=== PATIENT | male | born 1940 | race Caucasian/White ===

== ENCOUNTER → 2018-06-26 09:15 | Outpatient (CLI) | payer OTHER, SELFPAY ==
[2018-06-26 10:27] LABS: Add Manual Diff / Slide Review NO; Basophils Absolute Auto 0 /uL (0-100); Basophils Percent Auto 0.4 % (0-2); Eosinophils Absolute Auto 300 /uL (0-450); Eosinophils Percent Auto 3.9 % (2-4); Hematocrit 44.4 % (41-53); Hemoglobin 14.6 g/dL (13.5-17.5); Lymphocytes Absolute Auto 2300 /uL (1100-4500); Lymphocytes Percent Auto 28.9 % (25-40); Mean Corpuscular HGB Conc 32.9 % (30-36); Mean Corpuscular Hemoglobin 27.3 PG (26-34); Mean Corpuscular Volume 83.1 fL (80-100); Monocytes Absolute Auto 800 /uL (0-900); Monocytes Percent Auto 9.5 % (3-14); Neutrophils Absolute Auto 4600 /uL (1500-7000); Neutrophils Percent Auto 57.3 % (50-75); Platelet Count 321 X10^3/uL (150-400); Red Blood Cell Count 5.34 X10^6/uL (4.5-5.9); Red Cell Distribution Width 14.9 % (11.6-14.8)
[2018-06-26 10:45] LABS: Alanine Aminotransferase 41 IU/L (21-72); Albumin 4.4 g/dL (3.5-5.0); Albumin Globulin Ratio 1.3 (1.0-2.8); Alkaline Phosphatase 66 U/L (38-126); Aspartate Aminotransferase 26 IU/L (17-59); BUN Creatinine Ratio 13.8 (6-22); Bilirubin Total 0.5 mg/dL (0.2-1.3); Blood Urea Nitrogen 18 mg/dL (9-20); Calcium 8.9 mg/dL (8.4-10.2); Carbon Dioxide 26 mmol/L (22-32); Chloride 105 mmol/L (98-107); Cholesterol 207 mg/dL (140-199); Estimated Glomerular Filt Rate 53.3 mL/min (>60); Globulin 3.4 g/dL (1.7-4.1); Glucose 123 mg/dL (80-110); HDL Cholesterol 39 mg/dL (40-60); HEMOLYSIS < 15 (0-50); LDL Cholesterol Calculated 128 mg/dL (<100); Potassium 4.3 mmol/L (3.4-5.1); Sodium 140 mmol/L (137-145); Total Protein 7.8 g/dL (6.3-8.2); Triglycerides 200 mg/dL (35-150)
[2018-06-26 11:13] LABS: Thyroid Stimulating Hormone 0.75 uIU/mL (0.47-4.68)
[2018-06-26 11:33] LABS: Appearance Urine UA SL CLOUDY; Bilirubin Urine UA NEGATIVE (NEGATIVE); Color Urine UA YELLOW; Glucose Urine UA NEGATIVE (Negative); Ketones Urine UA NEGATIVE (NEGATIVE); Leukocyte Esterase Urine UA 3+ (NEGATIVE); Nitrite Urine UA POSITIVE (Negative); Occult Blood Urine UA 1+ (Negative); Protein Urine UA NEGATIVE (Negative); Specific Gravity Urine UA 1.015 (1.000-1.035); Urobilinogen Urine UA 0.2 E.U./dL (0.2); pH Urine UA 5.5 (4.5-8.0)
[2018-06-26 13:33] LABS: Bacteria Urine Many (>30); Culture Indicated Urine Specimen Cultured; RBC Urine 1-5/HPF (0-5/HPF); WBC Urine >100/HPF (0-5/HPF)
== END ==
PROVIDERS: Visit Provider Family Medicine
DX: I10 Essential (primary) hypertension (principal); N40.0 Benign prostatic hyperplasia without lower urinary tract symptoms; Z51.81 Encounter for therapeutic drug level monitoring
CPT/HCPCS: 36415; 80053; 80061; 81003; 81015; 84443; 85025; 87077; 87086; 87186

== ENCOUNTER → 2018-11-14 08:46 | Outpatient (CLI) | payer OTHER, SELFPAY ==
[2018-11-14 09:21] LABS: Hemoglobin A1C% w Est Avg Glu 6.2 % (4.0-6.0)
[2018-11-14 09:32] LABS: Alanine Aminotransferase 29 IU/L (21-72); Albumin 4.1 g/dL (3.5-5.0); Albumin Globulin Ratio 1.3 (1.0-2.8); Alkaline Phosphatase 66 U/L (38-126); Aspartate Aminotransferase 23 IU/L (17-59); BUN Creatinine Ratio 12.5 (6-22); Bilirubin Total 0.4 mg/dL (0.2-1.3); Blood Urea Nitrogen 15 mg/dL (9-20); Calcium 8.7 mg/dL (8.4-10.2); Carbon Dioxide 27 mmol/L (22-32); Chloride 108 mmol/L (98-107); Cholesterol 188 mg/dL (140-199); Estimated Glomerular Filt Rate 58.3 mL/min (>60); Globulin 3.2 g/dL (1.7-4.1); Glucose 114 mg/dL (80-110); HDL Cholesterol 45 mg/dL (40-60); HEMOLYSIS < 15 (0-50); LDL Cholesterol Calculated 114 mg/dL (<100); Potassium 4.2 mmol/L (3.4-5.1); Sodium 141 mmol/L (137-145); Total Protein 7.3 g/dL (6.3-8.2); Triglycerides 144 mg/dL (35-150)
== END ==
PROVIDERS: Visit Provider Family Medicine
DX: E78.5 Hyperlipidemia, unspecified (principal); I10 Essential (primary) hypertension; Z51.81 Encounter for therapeutic drug level monitoring
CPT/HCPCS: 36415; 80053; 80061; 83036

== ENCOUNTER → 2019-05-01 08:38 | Outpatient (CLI) | payer OTHER, SELFPAY ==
[2019-05-01 09:46] LABS: Alanine Aminotransferase 35 IU/L (<50); Albumin 4.6 g/dL (3.5-5.0); Albumin Globulin Ratio 1.5 (1.0-2.8); Alkaline Phosphatase 72 U/L (38-126); Aspartate Aminotransferase 32 IU/L (17-59); Bilirubin Total 0.6 mg/dL (0.2-1.3); Blood Urea Nitrogen 26 mg/dL (9-20); Calcium 9.1 mg/dL (8.4-10.2); Carbon Dioxide 27 mmol/L (22-32); Chloride 106 mmol/L (98-107); Cholesterol 161 mg/dL (140-199); Estimated Glomerular Filt Rate 53.1 mL/min (>60); Glucose 115 mg/dL (80-110); HDL Cholesterol 44 mg/dL (40-60); HEMOLYSIS < 15 (0-50); LDL Cholesterol Calculated 93 mg/dL (<100); Potassium 4.2 mmol/L (3.4-5.1); Sodium 143 mmol/L (137-145); Total Protein 7.6 g/dL (6.3-8.2); Triglycerides 120 mg/dL (35-150)
[2019-05-01 09:57] LABS: Hemoglobin A1C% w Est Avg Glu 6.3 % (4.0-6.0)
== END ==
PROVIDERS: PCP Family Medicine; Visit Provider Family Medicine
DX: E78.5 Hyperlipidemia, unspecified (principal); I10 Essential (primary) hypertension; R73.9 Hyperglycemia, unspecified
CPT/HCPCS: 36415; 80053; 80061; 83036

== ENCOUNTER 2023-10-04 11:22 | Emergency (ER) | payer OTHER, SELFPAY ==
[2023-10-04 11:30] VITALS: BP 112/56; PULSE 69; RESP 18; TEMP 36.4; O2SAT 98; BMI 34.4
--- NOTE | 2023-10-04 11:40 | DI.RAD.S_ITS ---
PROCEDURE: XR CHEST 2V INDICATIONS: cough TECHNIQUE: 2 views of the chest were acquired. COMPARISON: None. FINDINGS: Surgical changes and devices: None. Lungs and pleura: Lungs are clear. No pleural effusions or pneumothorax. Mediastinum: Mediastinal contours are normal. Heart size is normal. Bones and chest wall: No suspicious bony abnormalities. Soft tissues appear unremarkable. IMPRESSION: No acute cardiopulmonary abnormality is seen. Approved by: Dilan Powell M.D. on 10/04/2023 at 13:46
--- NOTE | 2023-10-04 12:16 | ED_ITS ---
HPI - URI/Sore Throat General Chief Complaint: Upper Respiratory Symptoms Stated Complaint: Cough, Congestion Time Seen by Provider: 10/04/23 12:16 Source: patient, RN notes reviewed and old records reviewed Mode of arrival: Ambulatory Limitations: no limitations History of Present Illness HPI Narrative: This is a 83-year-old male with history of hypertension and dyslipidemia who presents with about 2 weeks of nasal congestion, productive cough. Patient has not had any fevers or chills. No headache, no sore throat. No chest pain or pressure appears felt a little short of breath. Patient has had some mild nausea. No vomiting. He has had some mild diarrhea for the past day or 2. No black or bloody stools. No urinary symptoms. No new swelling in extremities. They were visiting in [place] patient his state that there were a lot of individuals with viral type infections had a lot of contact with different people. Symptoms have never really resolved. Cough has been persistent. Patient has not had any prior surgeries. No known drug allergies. No tobacco use. Occasional alcohol, no recreational drugs. Was seen at a travel clinic and told he had sinusitis and given Afrin. Related Data Home Medications Medication Instructions Recorded Confirmed calcium magnesium zinc PO DAILY 06/19/18 05/02/19 multivitamin 1 tab PO DAILY 06/19/18 05/02/19 omega-3 fatty acids 1,000 mg 1,000 mg PO DAILY 06/19/18 05/02/19 capsule (Fish Oil Concentrate) ketorolac 0.5 % eye drops 1 drop EYE-LEFT TID 05/02/19 05/02/19 latanoprost 0.005 % eye drops 1 drop EYE-BOTH DAILY 05/02/19 05/02/19 prednisolone acetate 1 % eye 1 drop EYE-BOTH TID 05/02/19 05/02/19 drops,suspension Previous Rx's Medication Instructions Recorded atorvastatin 10 mg tablet 10 mg PO DAILY #90 tabs 11/15/18 lisinopril 10 mg tablet 10 mg PO DAILY #90 tabs 11/15/18 Allergies Allergy/AdvReac Type Severity Reaction Status Date / Time No Known Drug Allergies Allergy Verified 05/02/19 10:38 Review of Systems Review of Systems ROS Unobtainable: All systems reviewed & are unremarkable except as noted in HPI and below Patient History Medical History (Updated 10/04/23 @ 14:07 by Maru Tapia DO) Vision disorder Hearing loss Cataracts, bilateral (~08/2017) Surgical History Anesthesia History of prostate surgery (~1992) Family History Father Hypertension Brother Heart disease Social History Smoking Status: Never smoker alcohol intake: current Smoking Status: Never smoker Substance Use Type: does not use Exam Narrative Exam Narrative: GEN: well nourished, well appearing male, alert and oriented x 3, patient appears to be in mild distress. HEENT: Atraumatic, pupils are equal round reactive to light, extraocular movements are intact, nares show bilateral clear rhinorrhea, TMs are clear with no fluid, there is no conjunctival pallor. Throat is clear without any exudates, erythema, tonsillar enlargement or uvular deviation HEART: Regular rate and rhythm without murmur, clicks, rubs. LUNGS:Lungs clear to auscultation, no wheezes, rales, crackles, chest moves symmetrically, no tachypnea or accessory muscle use. ABD:bowel sounds normal, soft, non-tender, no guarding, rebound, rigidity, no masses noted, no hepatosplenomegaly :No CVA tenderness MSCL: Non-tender, no muscle atrophy, muscles strength 5/5 upper and lower extremities, full range of motion, normal gait NEURO:CN 2-12 intact, sensation normal Initial Vital Signs Initial Vital Signs: Vital Signs Temperature 97.6 F 10/04/23 11:30 Pulse Rate 69 10/04/23 11:30 Respiratory Rate 18 10/04/23 11:30 Blood Pressure 112/56 L 10/04/23 11:30 Pulse Oximetry 98 10/04/23 11:30 Oxygen Delivery Method Room Air 10/04/23 11:30 Course Orders Ordered: ED Orders 10/04/23 11:35 Respiratory Panel (Film Array) Stat 10/04/23 11:40 XR chest 2V Stat Vital Signs Vital signs: Vital Signs - 8 hr 10/04/23 11:30 10/04/23 14:02 10/04/23 14:09 Temperature 97.6 F Pulse Rate 69 60 Pulse Rate [Orthostatic Lying] 60 Pulse Rate [Orthostatic Sitting] 58 L Pulse Rate [Orthostatic Standing] 60 Respiratory Rate 18 Blood Pressure 112/56 L Blood Pressure [Orthostatic Lying] 93/56 L Blood Pressure [Orthostatic Sitting] 75/55 L Blood Pressure [Orthostatic Standing] 108/52 L Pulse Oximetry 98 97 Oxygen Delivery Method Room Air Room Air MDM - URI/Sore Throat Lab Data Labs: Lab Results 10/04/23 Range/Units 11:35 Chlamy pneumoniae PCR Not detected (Not Detect) Adenovirus (PCR) Not detected (Not Detect) B.parapertussis DNA PCR Not detected (Not Detecte) Coronavirus OC43 (PCR) Not detected (Not Detect) Coronavirus HKU1 (PCR) Not detected (Not Detect) Coronavirus 229E (PCR) Not detected (Not Detect) SARS-CoV-2 (PCR) Detected H (Not Detecte) Coronavirus NL63 (PCR) Not detected (Not Detect) Human Metapneumovir PCR Not detected (Not Detect) Influenza A (PCR) Detected H (Not Detect) Influenza A (H3) PCR Detected H (Not Detect) Influenza Type A (PCR) Detected H (Not Detect) Influenza Type B (PCR) Not detected (Not Detect) M. pneumoniae (PCR) Not detected (Not Detect) Parainfluenza 1 (PCR) Not detected (Not Detect) Parainfluenza 2 (PCR) Not detected (Not Detect) Parainfluenza 3 (PCR) Not detected (Not Detect) Parainfluenza 4 (PCR) Not detected (Not Detect) RSV (PCR) Not detected (Not Detect) Entero/Rhino (PCR) Not detected (Not Detect) [facility] Narrative Medical decision making narrative: 83-year-old male with nasal congestion, productive cough patient has not looked at the color to see what it is. They do not appreciate any color changes per his . He is afebrile with a appropriate vitals here. But has had persistent symptoms for about 2 weeks with no resolution. No sinus tenderness or pressure. No objective fevers. Patient does have clear rhinorrhea bilaterally. Lungs are clear to auscultation. Respiratory panel, positive for influenza A, COVID also Chest x-ray also obtained secondary to prolonged course of symptoms. This is negative for acute change. Patient has a appropriate vitals, positive for Influenza A as well as COVID. Patient has had symptoms too long to be a candidate for medication. Chest x-ray shows no changes consistent with pneumonia. Discharge Plan Departure Patient Disposition: Home Clinical Impression: Influenza A, COVID-19 virus infection Instructions: Influenza, DI for COVID-19 (Suspected or Confirmed ) Activity Restrictions/Additional Instructions: Have tested positive for COVID as well as Influenza A You can take Tylenol and/or ibuprofen as needed for fevers. Continue to hydrate regularly. Please return if you are feeling worse, if you are having any new li ghtheadedness or symptoms passing out, persistent fevers, new chest pain or shortness of breath, any vomiting, new swelling in extremities or other new or concerning changes. Prescriptions: No Action multivitamin tablet 1 tab PO DAILY omega-3 fatty acids [Fish Oil Concentrate] 1,000 mg capsule 1,000 mg PO DAILY calcium magnesium zinc PO DAILY atorvastatin 10 mg tablet 10 mg PO DAILY Qty: 90 3RF lisinopril 10 mg tablet 10 mg PO DAILY Qty: 90 3RF ketorolac 0.5 % drops 1 drop EYE-LEFT TID Rx Instructions: Only Continuing for 1 more week per spouse. 05/02/2019 prednisolone acetate 1 % drops,suspension 1 drop EYE-BOTH TID Rx Instructions: Right eye - only continuing for one more week 3x a day Left eye - continuing until Doc appt. latanoprost 0.005 % drops 1 drop EYE-BOTH DAILY Referrals: Meghna Charlton DO [Primary Care Provider] - Stand Alone Forms: Patient Portal/API
[2023-10-04 13:17] LABS: Adenovirus Not Detected (Not Detect); B. parapertussis Not Detected (Not Detecte); Bordetella pertussis Not Detected (Not Detect); Chlamydophila pneumoniae Not Detected (Not Detect); Coronavirus 229E Not Detected (Not Detect); Coronavirus HKU1 Not Detected (Not Detect); Coronavirus NL 63 Not Detected (Not Detect); Coronavirus OC43 Not Detected (Not Detect); Human Metapneumovirus Not Detected (Not Detect); Human Rhinovirus/Enterovirus Not Detected (Not Detect); Influenza A Detected (Not Detect); Influenza A(No subj detected) Detected (Not Detect); Influenza B Not Detected (Not Detect); Mycoplasma pneumoniae Not Detected (Not Detect); Parainfluenza Virus 1 Not Detected (Not Detect); Parainfluenza Virus 2 Not Detected (Not Detect); Parainfluenza Virus 3 Not Detected (Not Detect); Parainfluenza Virus 4 Not Detected (Not Detect); Respiratory Syncytial Virus Not Detected (Not Detect)
[2023-10-04 13:18] LABS: Influenza A H3 Detected (Not Detect)
[2023-10-04 13:19] LABS: SARS- CoV-2 Detected (Not Detecte)
[2023-10-04 14:02] VITALS: PULSE 60; O2SAT 97
[2023-10-04 14:09] VITALS: BP 108/52; BP 75/55; BP 93/56; PULSE 58; PULSE 60
--- NOTE | 2023-10-04 14:10 | PC.NURSE ---
Pt denies any dizziness. Pts states that his bp is normally around 116.
== END 2023-10-04 14:16 | disposition home or self-care (01) ==
PROVIDERS: Emergency Provider Emergency Medicine; PCP Family Medicine
DX: U07.1 COVID-19 (principal); J10.1 Influenza due to other identified influenza virus with other respiratory manifestations; Z79.899 Other long term (current) drug therapy
CPT/HCPCS: 71046; 87633; 99281; 99283

== ENCOUNTER 2024-01-27 17:10 | Emergency (ER) | payer OTHER, SELFPAY ==
[2024-01-27] VITALS (10 sets, daily range): BP systolic 104–154; BP diastolic 53–70; PULSE 59–64; RESP 16–29; TEMP 36.6–36.7; O2SAT 97–99; BMI 34.4
--- NOTE | 2024-01-27 17:33 | PC.NURSE ---
patient has been not feeling well. hes been experiencing cold like symptoms. runny nose, weakness, and fatigue. His checked his blood sugar was 550. He denies cough, sob, cp, vomiting, diarrhea, abd pain, gu s/sx. He has not had his metformin in a while.
--- NOTE | 2024-01-27 17:42 | DI.RAD.S_ITS ---
PROCEDURE: XR CHEST 1V INDICATIONS: Cough TECHNIQUE: One view of the chest was acquired. COMPARISON: [facility], CR, XR CHEST 2V, 10/04/2023, 12:40. FINDINGS: Surgical changes and devices: None. Lungs and pleura: Low lung volumes. No dense airspace disease or pleural effusions. Mediastinum: Heart size is at the upper limit of normal, unchanged Bones and chest wall: Degenerative findings IMPRESSION: Low lung volumes. No dense airspace disease or pleural effusions. Dictated by: Nehemiah Bains M.D. on 01/27/2024 at 18:09 Approved by: Nehemiah Bains M.D. on 01/27/2024 at 18:09
--- NOTE | 2024-01-27 17:42 | EKG_ITS ---
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
[2024-01-27] MEDS: INSULIN REGULAR 100 UNIT/ML 3 ML VIAL 10 UNIT IV (17:52)
[2024-01-27] MEDS: SODIUM CHLORIDE 0.9% 1,000 ML 1000 ML IV (17:54)
[2024-01-27 17:57] LABS: Appearance Urine UA CLEAR; Bilirubin Urine UA NEGATIVE (NEGATIVE); Color Urine UA YELLOW; Glucose Urine UA 3+ g/dL (Negative); Ketones Urine UA TRACE (NEGATIVE); Leukocyte Esterase Urine UA TRACE (NEGATIVE); Nitrite Urine UA POSITIVE (Negative); Occult Blood Urine UA 1+ (Negative); Protein Urine UA NEGATIVE (Negative); Urobilinogen Urine UA 0.2 E.U./dL (0.2); pH Urine UA 5.5 (4.5-8.0)
[2024-01-27 18:09] LABS: Bacteria Urine Many (>30); Culture Indicated Urine Specimen Cultured; RBC Urine 1-5/HPF (0-5/HPF); Squamous Epithelial Cell Urine 0-1 /HPF (0-5/HPF); Urine Volume 10mL (spun); WBC Urine 10-30/HPF (0-5/HPF); White Blood Cell Casts Urine 0-1/LPF
[2024-01-27 18:13] LABS: Add Manual Diff / Slide Review NO; Basophils Absolute Auto 0 /uL (0-100); Basophils Percent Auto 0.7 % (0-2); Eosinophils Absolute Auto 100 /uL (0-450); Eosinophils Percent Auto 1.4 % (2-4); Hematocrit 44.8 % (41-53); Hemoglobin 14.9 g/dL (13.5-17.5); Lymphocytes Absolute Auto 1700 /uL (1100-4500); Lymphocytes Percent Auto 24.9 % (25-40); Mean Corpuscular HGB Conc 33.3 % (30-36); Mean Corpuscular Hemoglobin 28.3 PG (26-34); Mean Corpuscular Volume 84.8 fL (80-100); Monocytes Absolute Auto 500 /uL (0-900); Monocytes Percent Auto 7.1 % (3-14); Neutrophils Absolute Auto 4500 /uL (1500-7000); Neutrophils Percent Auto 65.9 % (50-75); Platelet Count 218 X10^3/uL (150-400); Red Blood Cell Count 5.28 X10^6/uL (4.5-5.9); Red Cell Distribution Width 13.4 % (11.6-14.8); White Blood Cell Count 6.8 X10^3/uL (4.5-11.0)
[2024-01-27 18:18] LABS: Alanine Aminotransferase 28 IU/L (<50); Albumin 4.4 g/dL (3.5-5.0); Albumin Globulin Ratio 1.4 (1.0-2.8); Alkaline Phosphatase 103 U/L (38-126); Aspartate Aminotransferase 26 IU/L (17-59); Bilirubin Total 0.6 mg/dL (0.2-1.3); Blood Urea Nitrogen 29 mg/dL (9-20); Calcium 8.9 mg/dL (8.4-10.2); Carbon Dioxide 22 mmol/L (22-32); Chloride 104 mmol/L (98-107); Estimated Glomerular Filt Rate 50 mL/min (>60); Globulin 3.2 g/dL (1.7-4.1); HEMOLYSIS 25 (0-50); Lipase 216 U/L (23-300); Potassium 4.5 mmol/L (3.4-5.1); Sodium 136 mmol/L (137-145); Total Protein 7.6 g/dL (6.3-8.2)
[2024-01-27 18:19] LABS: Glucose 618 mg/dL (80-110)
[2024-01-27 18:24] LABS: Ketones (Beta-Hydroxybutyrate) 0.76 mmol/L (<0.27)
[2024-01-27 18:31] LABS: Troponin I < 0.012 ng/mL (0.01-0.034)
[2024-01-27 18:50] LABS: Adenovirus Not Detected (Not Detect); B. parapertussis Not Detected (Not Detecte); Bordetella pertussis Not Detected (Not Detect); Chlamydophila pneumoniae Not Detected (Not Detect); Coronavirus 229E Not Detected (Not Detect); Coronavirus HKU1 Not Detected (Not Detect); Coronavirus NL 63 Not Detected (Not Detect); Coronavirus OC43 Not Detected (Not Detect); Human Metapneumovirus Not Detected (Not Detect); Human Rhinovirus/Enterovirus Not Detected (Not Detect); Influenza A Not Detected (Not Detect); Influenza B Not Detected (Not Detect); Mycoplasma pneumoniae Not Detected (Not Detect); Parainfluenza Virus 1 Not Detected (Not Detect); Parainfluenza Virus 2 Not Detected (Not Detect); Parainfluenza Virus 3 Not Detected (Not Detect); Parainfluenza Virus 4 Not Detected (Not Detect); Respiratory Syncytial Virus Not Detected (Not Detect); SARS- CoV-2 Not Detected (Not Detecte)
--- NOTE | 2024-01-27 19:29 | ED.GENADULT ---
HPI - General Adult General Chief complaint: Dizziness Stated complaint: high blood sugar, dizziness Time Seen by Provider: 01/27/24 17:38 Source: patient and family Mode of arrival: Family Vehicle History of Present Illness HPI narrative: Patient is an 83-year-old male. States he has a history of ?prediabetes? 1 point he has been on metformin but states that it was only prescribed for short period of time and has not been on this medicine for a long time. Has a follow-up with his primary doctor in proximally 2 months from now. This was a scheduled regular appointment. Over the past couple days he was noticed increase in urination. Otherwise he has felt okay. No chest pain. No shortness of breath. No abdominal pain. No change in bowel habits. No fevers. He did have some URI like symptoms but tested several times at home for COVID and a been negative. He was here with family. Family members diabetic. She checked his blood sugar and it was elevated which is what brought him to the emergency department today. Related Data Home Medications Medication Instructions Recorded Confirmed calcium magnesium zinc PO DAILY 06/19/18 05/02/19 multivitamin 1 tab PO DAILY 06/19/18 05/02/19 omega-3 fatty acids 1,000 mg 1,000 mg PO DAILY 06/19/18 05/02/19 capsule (Fish Oil Concentrate) ketorolac 0.5 % eye drops 1 drop EYE-LEFT TID 05/02/19 05/02/19 latanoprost 0.005 % eye drops 1 drop EYE-BOTH DAILY 05/02/19 05/02/19 prednisolone acetate 1 % eye 1 drop EYE-BOTH TID 05/02/19 05/02/19 drops,suspension Previous Rx's Medication Instructions Recorded atorvastatin 10 mg tablet 10 mg PO DAILY #90 tabs 11/15/18 lisinopril 10 mg tablet 10 mg PO DAILY #90 tabs 11/15/18 cephalexin 500 mg capsule 500 mg PO BID 7 days #14 caps 01/27/24 metformin 500 mg tablet 500 mg PO DAILY #60 tabs 01/27/24 Allergies Allergy/AdvReac Type Severity Reaction Status Date / Time No Known Drug Allergies Allergy Verified 05/02/19 10:38 Review of Systems Review of Systems ROS Unobtainable: All systems reviewed & are unremarkable except as noted in HPI and below Patient History Medical History Vision disorder Hearing loss Cataracts, bilateral (~08/2017) Surgical History Anesthesia History of prostate surgery (~1992) Family History Father Hypertension Brother Heart disease Social History Smoking Status: Never smoker alcohol intake: current Smoking Status: Never smoker Substance Use Type: does not use Exam Initial Vital Signs Initial Vital Signs: Vital Signs Temperature 98.0 F 01/27/24 17:17 Pulse Rate 64 01/27/24 17:17 Respiratory Rate 16 01/27/24 17:17 Blood Pressure 154/63 H 01/27/24 17:17 Pulse Oximetry 99 01/27/24 17:17 Oxygen Delivery Method Room Air 01/27/24 17:17 Const General: cooperative, comfortable and No ill appearing Resp Effort & Inspection: normal respiratory effort Cardio Rate: regular rate Skin General: no rashes or lesions noted Neuro General: patient alert, patient awake and moves all extremities Extrem General: capillary refill normal Course Orders Ordered: ED Orders 01/27/24 17:42 Chest [XR chest 1V] Stat EKG-12 Lead Stat 01/27/24 17:46 Urinalysis and Microscopic Stat Urine Culture Stat 01/27/24 17:56 CBC Auto Diff [Complete Blood Count AUTO DIFF] Stat CMP [Comprehensive Metabolic Panel] Stat Ketones (Beta-Hydroxybutyrate) Stat Lipase Stat Troponin I Stat 01/27/24 17:58 Respiratory Panel (Film Array) Stat Discontinued Medications Cephalexin HCl (Cephalexin 250 Mg Capsule) 500 mg PO NOW ONE Stop: 01/27/24 19:30 Last Admin: 01/27/24 19:53 Dose: 500 mg Documented By: GC Sodium Chloride (Normal Saline 0.9%) 1,000 mls @ 1,000 mls/hr IV BOLUS ONE Stop: 01/27/24 18:37 Last Infusion: 01/27/24 19:15 Dose: Infused Documented By: Admin: 01/27/24 17:54 Dose: 1,000 mls/hr Documented By: RLS Insulin Human Regular (Insulin Regular 100 Unit/Ml 3 Ml Vial) 10 unit IV NOW ONE Stop: 01/27/24 17:39 Last Admin: 01/27/24 17:52 Dose: 10 unit Documented By: JOHN PAUL Co-signed By: ROYAL Metformin HCl (Metformin Hcl 500 Mg Tablet) 500 mg PO NOW ONE Stop: 01/27/24 19:31 Last Admin: 01/27/24 19:53 Dose: 500 mg Documented By: NIK Vital Signs Vital signs: Vital Signs - 8 hr 01/27/24 17:17 01/27/24 17:25 01/27/24 17:26 Temperature 98.0 F Pulse Rate 64 62 Respiratory Rate 16 20 Blood Pressure 154/63 H 154/63 H Pulse Oximetry 99 98 Oxygen Delivery Method Room Air Room Air 01/27/24 17:26 01/27/24 17:30 01/27/24 17:31 Temperature Pulse Rate 62 60 Respiratory Rate Blood Pressure 107/58 L Pulse Oximetry 99 98 Oxygen Delivery Method 01/27/24 17:31 01/27/24 18:00 01/27/24 18:01 Temperature Pulse Rate 61 60 62 Respiratory Rate Blood Pressure Pulse Oximetry 98 98 98 Oxygen Delivery Method 01/27/24 18:01 01/27/24 18:30 01/27/24 18:30 Temperature Pulse Rate 60 Respiratory Rate Blood Pressure 128/60 104/53 L Pulse Oximetry 97 Oxygen Delivery Method 01/27/24 19:00 01/27/24 19:00 01/27/24 19:30 Temperature Pulse Rate 59 L Respiratory Rate 26 H Blood Pressure 118/70 130/60 Pulse Oximetry 98 Oxygen Delivery Method 01/27/24 19:30 Temperature 97.9 F Pulse Rate 59 L Respiratory Rate 29 H Blood Pressure Pulse Oximetry 97 Oxygen Delivery Method Medical Decision Making Lab Data Lab results reviewed: Yes I reviewed the patient's lab results. 01/27/24 17:56 01/27/24 17:56 Labs: Lab Results 01/27/24 01/27/24 01/27/24 Range/Units 17:46 17:56 17:58 WBC 6.8 (4.5-11.0) X10^3/uL RBC 5.28 (4.5-5.9) X10^6/uL Hgb 14.9 (13.5-17.5) g/dL Hct 44.8 (41-53) % MCV 84.8 (80-100) fL MCH 28.3 (26-34) PG MCHC 33.3 (30-36) % RDW 13.4 (11.6-14.8) % Plt Count 218 (150-400) X10^3/uL Neut % (Auto) 65.9 (50-75) % Lymph % (Auto) 24.9 L (25-40) % Mclennan % (Auto) 7.1 (3-14) % Eos % (Auto) 1.4 L (2-4) % Baso % (Auto) 0.7 (0-2) % Neut # (Auto) 4500 (8681-2756) /uL Lymph # (Auto) 1700 (9893-2070) /uL Mclennan # (Auto) 500 (0-900) /uL Eos # (Auto) 100 (0-450) /uL Baso # (Auto) 0 (0-100) /uL Sodium 136 L (137-145) mmol/L Potassium 4.5 (3.4-5.1) mmol/L Chloride 104 (98-107) mmol/L Carbon Dioxide 22 (22-32) mmol/L BUN 29 H (9-20) mg/dL Creatinine 1.38 H (0.66-1.25) mg/dL Estimated GFR 50 L (>60) mL/min BUN/Creatinine Ratio 21.0 (6-22) Glucose 618 H* (80-110) mg/dL Calcium 8.9 (8.4-10.2) mg/dL Total Bilirubin 0.6 (0.2-1.3) mg/dL AST 26 (17-59) IU/L ALT 28 (<50) IU/L Alkaline Phosphatase 103 (38-126) U/L Troponin I < 0.012 (0.01-0.034) ng/mL Total Protein 7.6 (6.3-8.2) g/dL Albumin 4.4 (3.5-5.0) g/dL Globulin 3.2 (1.7-4.1) g/dL Albumin/Globulin Ratio 1.4 (1.0-2.8) Lipase 216 (23-300) U/L Urine Color Yellow Urine Appearance Clear Urine pH 5.5 (4.5-8.0) Ur Specific [place] 1.010 (1.000-1.035) Urine Protein Negative (Negative) Urine Glucose (UA) 3+ H (Negative) g/dL Urine Ketones Trace H (NEGATIVE) Urine Occult Blood 1+ H (Negative) Urine Nitrate Positive H (Negative) Urine Bilirubin Negative (NEGATIVE) Urine Urobilinogen 0.2 (0.2) E.U./dL Ur Leukocyte Esterase Trace H (NEGATIVE) Urine RBC 1-5/hpf (0-5/HPF) Urine WBC 10-30/hpf H (0-5/HPF) Ur Squamous Epith Cells 0-1 /hpf (0-5/HPF) Urine Bacteria Many (>30) H (None) WBC Casts 0-1/lpf (None) Ur Culture Indicated? Specimen cultured Vol Urine Centrifuged 10ml (spun) Ketones 0.76 H (<0.27) mmol/L Chlamy pneumoniae PCR Not detected (Not Detect) Adenovirus (PCR) Not detected (Not Detect) B. pertussis DNA (PCR) Not detected (Not Detect) B.parapertussis DNA PCR Not detected (Not Detecte) Coronavirus OC43 (PCR) Not detected (Not Detect) Coronavirus HKU1 (PCR) Not detected (Not Detect) Coronavirus 229E (PCR) Not detected (Not Detect) SARS-CoV-2 (PCR) Not detected (Not Detecte) Coronavirus NL63 (PCR) Not detected (Not Detect) Human Metapneumovir PCR Not detected (Not Detect) Influenza Type A (PCR) Not detected (Not Detect) Influenza Type B (PCR) Not detected (Not Detect) M. pneumoniae (PCR) Not detected (Not Detect) Parainfluenza 1 (PCR) Not detected (Not Detect) Parainfluenza 2 (PCR) Not detected (Not Detect) Parainfluenza 3 (PCR) Not detected (Not Detect) Parainfluenza 4 (PCR) Not detected (Not Detect) RSV (PCR) Not detected (Not Detect) Entero/Rhino (PCR) Not detected (Not Detect) Point of Care Testing Glucose POC 380 Point of care testing: Point of Care Testing Glucose POC 380 ECG Data Attestation: I personally reviewed and interpreted this ECG as follows: Interpretation: Sinus bradycardia Ventricular rate of 59 Normal axis Right bundle-branch block No ST changes MDM Narrative Medical decision making narrative: Patient is hyperglycemic however not in DKA. Is not acidotic. Kidney function is baseline. Respiratory panel was negative. He does have a nitrite positive urine. Unsure whether or not his frequent urination is due to his elevated blood sugar or potentially a urinary tract infection. Given his history of ?prediabetes? unsure whether or not this hyperglycemia is a new issue or old. Plan is going to be to treat him for UTI. Will he was given a 1st dose of Keflex here in the ER. Urine culture was pending of the understand we will contact them if we need to change antibiotics based on this. Also will start him on metformin. He was given a dose here in the ER. A prescription was printed and given to the patient. Advised that he take this on a daily basis. His follow-up appointment on April 12 would be appropriate as that will give him a time to finish the treatment for the UTI and also spent several weeks on the metformin and then he can have his blood sugar checked again by his primary doctor to see whether or not he needs to change any medications based on this. They were given return precautions. He expressed understanding and agreement. Discharge Plan Departure Patient Disposition: Home Clinical Impression: Hyperglycemia, Urinary tract infection Instructions: DI for Urinary Tract Infection (UTI), DI for Hyperglycemia -- Adult Activity Restrictions/Additional Instructions: Take the antibiotics as directed. There was a urine culture pending at the time of discharge and we will contact you if we need to change antibiotics based on this. We also are going to restart you on metformin. This is the medication to try to help with your elevated blood sugar. Take this medication 1 time a day. You may need to increase the dose of this medication however this can be done after you follow-up with your primary care doctor. Keep the appointment that you have on April 12. Contact them to let them know about your visit today. Return to the emergency department for new or worsening symptoms. Prescriptions: New cephalexin 500 mg capsule 500 mg PO BID 7 Days Qty: 14 0RF metformin 500 mg tablet 500 mg PO DAILY Qty: 60 2RF No Action multivitamin tablet 1 tab PO DAILY omega-3 fatty acids [Fish Oil Concentrate] 1,000 mg capsule 1,000 mg PO DAILY calcium magnesium zinc PO DAILY atorvastatin 10 mg tablet 10 mg PO DAILY Qty: 90 3RF lisinopril 10 mg tablet 10 mg PO DAILY Qty: 90 3RF ketorolac 0.5 % drops 1 drop EYE-LEFT TID Rx Instructions: Only Continuing for 1 more week per spouse. 05/02/2019 prednisolone acetate 1 % drops,suspension 1 drop EYE-BOTH TID Rx Instructions: Right eye - only continuing for one more week 3x a day Left eye - continuing until Doc appt. latanoprost 0.005 % drops 1 drop EYE-BOTH DAILY Referrals: Meghna Charlotn DO [Primary Care Provider] - Stand Alone Forms: Patient Portal/API
[2024-01-27] MEDS: METFORMIN HCL 500 MG TABLET PO (19:53)
[2024-01-27] MEDS: cephALEXin 250 MG CAPSULE 500 MG PO (19:53)
== END 2024-01-27 20:05 | disposition home or self-care (01) ==
PROVIDERS: Emergency Medicine; Physician Assistant; Emergency Provider Emergency Medicine; PCP Family Medicine
DX: N39.0 Urinary tract infection, site not specified (principal); R73.9 Hyperglycemia, unspecified; R00.1 Bradycardia, unspecified; I45.10 Unspecified right bundle-branch block; Z11.52 Encounter for screening for COVID-19
CPT/HCPCS: 36415; 71045; 80053; 81001; 82009; 82962; 83690; 84484; 85025; 87077; 87086; 87186; 87633; 93005; 93010; 96361; 96374; 99284